=== PATIENT | female | born 1940 | race Hispanic/Latino ===

== ENCOUNTER 2016-09-09 11:58 | Emergency (ER) | payer MEDICARE ==
[2016-09-09 12:24] VITALS: O2SAT 96
[2016-09-09 12:25] VITALS: RESP 18
--- NOTE | 2016-09-09 12:36 | ED PDOC ---
Arrival/HPI - General Chief Complaint: Lower Extremity Problem/Injury Time Seen by Provider: 09/09/16 12:23 Historian: Patient - History of Present Illness Narrative History of Present Illness (Text): 09/09/16 12:25 A 76 year old female, whose past medical history includes hypertension, presents to the emergency department complaining of intermittent right lower back pain for the past 2 weeks. Pain is sharp, radiated down the right lower extremity and is worse with walking. She denies any numbness, urinary/bowel incontinence, weakness, trauma, history of cancer, history of recent surgery/ procedures, or any other complaints at this time. Time/Duration: > week Symptom Onset: Sudden Symptom Course: Intermittent Quality: Other Activities at Onset: Rest Context: Home Past Medical History - Provider Review Nursing Documentation Reviewed: Yes - Infectious Disease Hx of Infectious Diseases: None - Cardiac Hx Hypertension: Yes - Psychiatric Hx Substance Use: No Family/Social History - Physician Review Nursing Documentation Reviewed: Yes Family/Social History: Unknown Family HX Smoking Status: Never Smoked Hx Alcohol Use: No Hx Substance Use: No Allergies/Home Meds Allergies/Adverse Reactions: Allergies No Known Allergies Allergy (Verified 09/09/16 12:24) Home Medications: Home Meds Medication Instructions Recorded Confirmed amLODIPine [Norvasc] 1 tab PO DAILY 09/09/16 09/09/16 Review of Systems - Physician Review All systems were reviewed & negative as marked: Yes - Review of Systems Gastrointestinal: absent: Stool Changes Genitourinary Female: absent: Urine Output Changes Musculoskeletal: Back Pain (right sided back pain radiating down the right lower extremity) Neurological: absent: Focal Weakness, Other (numbness) Physical Exam - Physical Exam Narrative Physical Exam (Text): Constitutional: No acute distress. Head: Normocephalic. Atraumatic. Eyes: PERRL. ENT: Moist mucous membranes. Neck: Supple. Cardiovascular: Regular rate. Chest: No tenderness. Respiratory: Clear to auscultation bilaterally. GI: Soft. Nontender. Nondistended. Back: No CVA tenderness. No midline tenderness. Musculoskeletal: No tenderness or swelling of extremities. Skin: No rash. Neurologic: Alert, no focal deficit. Vital Signs Reviewed: Yes Vital Signs Temp Pulse Resp BP Pulse Ox 09/09/16 13:51 98.0 F 75 18 138/79 96 09/09/16 12:24 78 18 143/85 96 07/05/17 12:22 97.7 F 78 16 143/85 96 Temperature: Afebrile Blood Pressure: Normal Pulse: Regular Respiratory Rate: Normal Appearance: Positive for: Well-Appearing, Non-Toxic, Comfortable Pain Distress: None Mental Status: Positive for: Alert and Oriented X 3 Medical Decision Making ED Course and Treatment: 09/09/16 12:25 Impression: A 76 year old female with right lower back pain radiating down the right lower extremity. Differential Diagnosis include but are not limited to: sciatica vs. fractures Plan: -- LS spine X-ray -- Urinalysis -- Toradol -- Reassess and disposition Progress Notes: 09/09/16 13:40 LS Spine X-ray: Creator : Fany Dickens V. COMPARISON: 01/06/2013 FINDINGS: BONES: Straightening of the normal lumbar lordosis is suggested. Five lumbar vertebrae and non rib-bearing are noted No listhesis. No fracture. Subchondral sclerosis with prominent marginal osteophytosis right lateral L2-3 and diffuse at L4-5 is noted. The L4-5 disc space narrowing and marginal osteophytosis here and at L2 have progressed since 2013. DISC SPACES: As above OTHER FINDINGS: Multiple gallstones are present a round radiopaque ring probably relates to a pessary IMPRESSION: Interval progressive lumbar spondylosis and interval progressive degenerative disc disease. Gallstones. Pessary - Lab Interpretations Lab Results: Lab Results 09/09/16 13:24: Urine Color Yellow, Urine Appearance Clear, Urine pH 6.0, Ur Specific [place] 1.025, Urine Protein Negative, Urine Glucose (UA) Negative, Urine Ketones Negative, Urine Blood Trace-lysed H, Urine Nitrate Negative, Urine Bilirubin Negative, Urine Urobilinogen 0.2, Ur Leukocyte Esterase Negative , Urine RBC 0 - 2, Urine WBC Negative, Ur Epithelial Cells 4 - 5, Urine Bacteria Few I have reviewed the lab results: Yes - RAD Interpretation Radiology Orders: 09/09/16 12:30 LS SPINE AP/LAT [RAD] Stat - Medication Orders Current Medication Orders: Discontinued Medications Ketorolac Tromethamine (Toradol) 15 mg IM STAT STA Stop: 09/09/16 12:31 Last Admin: 09/09/16 12:37 Dose: 15 mg Ketorolac Tromethamine (Toradol) Confirm Administered Dose 30 mg .ROUTE .STK- MED ONE Stop: 09/09/16 12:34 Last Admin: 09/09/16 12:41 Dose: Comments: Not give - Scribe Statement The provider has reviewed the documentation as recorded by the Scribe [employer] Provider Scribe Attestation: All medical record entries made by the Scribe were at my direction and personally dictated by me. I have reviewed the chart and agree that the record accurately reflects my personal performance of the history, physical exam, medical decision making, and the department course for this patient. I have also personally directed, reviewed, and agree with the discharge instructions and disposition. Disposition/Present on Arrival - Present on Arrival Any Indicators Present on Arrival: No History of DVT/PE: No History of Uncontrolled Diabetes: No Urinary Catheter: No History of Decub. Ulcer: No History Surgical Site Infection Following: None - Disposition Have Diagnosis and Disposition been Completed?: Yes Diagnosis: Sciatica Disposition: HOME/ ROUTINE Disposition Time: 13:40 Patient Plan: Discharge Condition: STABLE Discharge Instructions (ExitCare): Sciatica (ED) Prescriptions: Famotidine [Pepcid] 1 tab PO BID #14 tab Ibuprofen [Motrin] 600 mg PO Q6 #25 tab [facility] - Follow up with primary
[2016-09-09 13:33] LABS: URINE BILIRUBIN NEGATIVE (NEGATIVE); URINE BLOOD TRACE-LYSED (NEGATIVE); URINE GLUCOSE (UA) NEGATIVE (NEGATIVE); URINE LEUKOCYTE ESTERASE NEGATIVE Leu/uL (NEGATIVE); URINE NITRATE NEGATIVE (NEGATIVE); URINE PROTEIN NEGATIVE mg/dL (<30 mg/dL); URINE UROBILINOGEN 0.2 E.U./dL (<1 E.U./dL)
[2016-09-09 13:34] LABS: URINE APPEARANCE CLEAR (CLEAR); URINE COLOR YELLOW (YELLOW)
[2016-09-09 13:38] LABS: URINE BACTERIA FEW (NEG); URINE RBC 0 - 2 /hpf (0-2); URINE WBC NEGATIVE /hpf (0-6)
--- NOTE | 2016-09-09 13:39 | RAD ---
PROCEDURE: Radiographs of the Lumbar Spine. HISTORY: back pain COMPARISON: 01/06/2013 FINDINGS: BONES: Straightening of the normal lumbar lordosis is suggested. Five lumbar vertebrae and non rib-bearing are noted No listhesis. No fracture. Subchondral sclerosis with prominent marginal osteophytosis right lateral L2-3 and diffuse at L4-5 is noted. The L4-5 disc space narrowing and marginal osteophytosis here and at L2 have progressed since 2013. DISC SPACES: As above OTHER FINDINGS: Multiple gallstones are present a round radiopaque ring probably relates to a pessary IMPRESSION: Interval progressive lumbar spondylosis and interval progressive degenerative disc disease. Gallstones Pessary
[2016-09-09 13:52] VITALS: BP 138/79; PULSE 75; TEMP 98
== END 2016-09-09 14:07 | disposition home or self-care (01) ==
LOC: ED 11:58
DX: M54.30 Sciatica, unspecified side (principal); I10 Essential (primary) hypertension
CPT/HCPCS: 72100; 81001; 96372; 99284; J1885